=== PATIENT | female | born 1985 | race Two or more races ===

== ENCOUNTER 2019-12-17 13:52 | Emergency (ER) | payer BC, MEDICAID ==
[~2019-12-17] VITALS: Ht 165.1 cm; Wt 85.2 kg
[2019-12-17 13:58] VITALS: BP 137/76
--- NOTE | 2019-12-17 14:18 | NUR ---
Pt arrives to ed with abd pain and abd cramping starting last night. Pt reports she is having rectal bleeding. Pt denies any trauma. Was concerned about what she at last night but no one else got sick. Pt reports regualr bm but now feels like she needs to go but cant. Pt in [facility] with call light in reach and fall prevention measures in place.
--- NOTE | 2019-12-17 15:54 | NUR ---
Patient/Caregiver given discharge instructions and they have confirmed that they understand the instructions. Patient ambulatory with steady gait.
== END 2019-12-17 15:57 | disposition home or self-care (01) ==
LOC: ED 14:43
DX: K64.8 Other hemorrhoids (principal); R10.9 Unspecified abdominal pain
CPT/HCPCS: 99282